=== PATIENT | female | born 1995 | race Caucasian/White ===

== ENCOUNTER → 2017-07-06 | Outpatient (CLI) | payer OTHER ==
--- NOTE | 2017-07-06 09:42 | DIAGNOSTIC IMAGING REPORT ---
ABD WITH ORAL CONT ONLY (CT) HISTORY: 21 years-old Female ELEVATED DHEAS screening study for possible adrenal pathology. COMPARISON: None available TECHNIQUE: Multiple axial CT images of the abdomen were obtained with oral contrast only. A dose lowering technique was used consistent with the principals of [place]. FINDINGS: The imaged lung bases appear generally clear. There is no pneumatosis or pneumoperitoneum identified. Study is mildly motion degraded. The imaged inferior cardiac chambers are unremarkable. No large pericardial effusion. Evaluation of the solid abdominal organs is limited without the use of IV contrast. Within the limitations of the study, the liver, spleen, gallbladder, and pancreas are unremarkable. Right adrenal gland appears normal. There is apparent mild thickening about the left adrenal gland which is likely secondary to redundant medial and lateral limbs. Evaluation for adrenal lesion is limited secondary to relative lack of retroperitoneal fat within this distribution. No definite adrenal mass lesion identified. 2 mm nonobstructing calculus of the interpolar left kidney with punctate nonobstructing calculus of the inferior pole right kidney. No hydronephrosis. No aortic aneurysm or pathologic adenopathy. No bowel obstruction or focal bowel wall thickening identified. No ascites. Appendix not visualized. Soft tissues are within normal limits. Bones appear intact. IMPRESSION: 1. No acute intra-abdominal abnormality identified, specifically no definite adrenal lesion is seen. 2. Nonobstructing bilateral nephrolithiasis. The above report was generated using voice recognition software. It may contain grammatical, syntax or spelling errors. Electronically signed by: Romario Mora M.D. 07/06/2017 9:40 AM Dictated Date/Time: 07/06/2017 9:31 AM
== END | disposition home or self-care (01) ==
LOC: C.CTS 08:55
PROVIDERS: ATTEND Family Medicine
DX: N20.0 Calculus of kidney (principal); E27.8 Other specified disorders of adrenal gland